=== PATIENT | female | born 1995 | race Caucasian/White ===

== ENCOUNTER 2018-04-24 15:35 | Observation (INO) ==
[2018-04-24 16:36] LABS: Amphetamine Screen,Urine Negative ng/mL (Cutoff=1000); Barbiturate Screen,Urine Negative ng/mL (Cutoff=200); Benzodiazepines Screen,Urine Negative ng/mL (Cutoff=200); Cannabinoid Screen,Urine Negative ng/mL (Cutoff = 50); Cocaine Screen,Urine Negative ng/mL (Cutoff= 300); Opiate Screen,Urine Negative ng/mL (Cutoff=300); Phencyclidine Screen,Urine Negative ng/mL (Cutoff=25)
--- NOTE | 2018-04-24 16:45 | OB/GYN Progress Note ---
Date of Encounter: 04/24/18 Time of Encounter: 16:42 - Assessment and Plan (1) 37 weeks gestation of Current Visit: Yes Status: Acute Vaginosis panel - Yeast and gardnerella positive; diflucan given prior to discharge and sent home with metrogel due to patient stating she is unable to tolerate po metronidazole. Not ruptured, SSE negative, nitrazine negative, Membranes palpable with SVE Serial cervical exams - no change Discharge home with labor precautions and bleeding precautions FOllow up in office as scheduled and PRN. (2) NST (non-stress test) reactive Current Visit: Yes Status: Acute Subjective - Subjective Principal diagnosis: Decreased movement; vaginal leaking of fluid Interval history: Ms Desai is at 37w[address] España's that presents to the office with c/ o leaking of fluid x 2 days with multiple pad changes daily. She c/o contractions every 15 minutes. She states that she has had BV this previous , but denies any other problems with this . She states decreased movement since this morning. She denies headache, vision changes, epigastric pain, vaginal bleeding, and intercourse in the past 48 hours. Antepartum ROS: new complaints, loss of fluid, no vaginal bleeding, no movement normal, no contractions Objective - Vital Signs Vital Signs: Intake and Output 04/24/18 04/24/18 04/24/18 07:59 15:59 23:59 Other: Weight 99.79 kg Patient Weight 04/24/18 23:59 Weight 99.79 kg - Exam FHR: auscultation normal, category 1 FHR comments: Baseline 130 category I tracing Auscultation: bilateral: normal Abdomen: Present: normal appearance, soft, gravid Uterus: Present: normal. Absent: firm, tenderness Cervical dilation: 2 Cervix effacement: 80 station: 0 Comments: SSE - moderate amount of green/yellow thick discharge. homogenous in appearance Vaginal bleeding occurred with opening of speculum.
[2018-04-24 17:38] LABS: Candida DNA DETECTED (Not Detect); Gardnerella DNA DETECTED (Not Detect); Trichomonas DNA Not Detected (Not Detect)
[2018-04-24] MEDS ORDERED: Fluconazole 100 MG TABLET PO ONE (17:43)
== END 2018-04-24 19:27 | disposition home or self-care (01) ==
LOC: 1NENULAB
PROVIDERS: ADMIT Advanced Practice Midwife; ATTEND Advanced Practice Midwife

== ENCOUNTER 2018-05-04 08:00 | Inpatient (IN) ==
[2018-05-04] MEDS ORDERED: *HR* Nalbuphine 10 MG/ML AMPUL IVP PRN (08:23)
[2018-05-04] MEDS ORDERED: Naloxone 0.4 MG/ML INJ IVP PRN (08:23)
[2018-05-04] MEDS ORDERED: Metoclopramide 10 MG/2 ML VIAL IVP PRN (08:23)
[2018-05-04] MEDS ORDERED: Famotidine 20 MG/2 ML VIAL IVP PRN (08:23)
[2018-05-04] MEDS ORDERED: Oxytocin 20 units/ LR 1000 mL 20 UNIT/1,000 ML BAG IVC SCH (08:30)
[2018-05-04 08:59] LABS: Basophils # 0.1 K/mcL (0.0-0.2); Basophils % 0.6 %; Eosinophils # 0.1 K/mcL (0.0-0.6); Eosinophils % 0.7 %; Hemoglobin 13.7 g/dL (11.5-15.4); Lymphocytes # 2.6 K/mcL (0.6-4.6); Mean Corpuscular HGB Conc 35.1 g/dL (31.6-35.5); Mean Corpuscular Hemoglobin 32.6 pg (28.0-33.3); Mean Corpuscular Volume 92.9 fL (83.0-100.0); Mean Platelet Volume 10.6 fL (9.4-12.4); Monocytes # 0.9 K/mcL (0.0-1.3); Monocytes % 7.4 %; Neutrophils # 8.1 K/mcL (1.6-8.9); Platelet Count 167 K/mcL (140-400); Red Cell Distribution Width 14.5 % (11.5-14.5); Segmented Neutrophils % 66.3 %
[2018-05-04 09:07] LABS: Amphetamine Screen,Urine Negative ng/mL (Cutoff=1000); Barbiturate Screen,Urine Negative ng/mL (Cutoff=200); Benzodiazepines Screen,Urine Negative ng/mL (Cutoff=200); Cannabinoid Screen,Urine Negative ng/mL (Cutoff = 50); Cocaine Screen,Urine Negative ng/mL (Cutoff= 300); Opiate Screen,Urine Negative ng/mL (Cutoff=300); Phencyclidine Screen,Urine Negative ng/mL (Cutoff=25)
--- NOTE | 2018-05-04 09:13 | Anesthesia Evaluation PreOp ---
Date of Encounter: 05/04/18 Time of Encounter: 09:01 - Past History Planned Operation: vaginal del, G1 induction Cardiac History: Denies any Significant Hx Pulmonary History: Denies Any Significant HX [employer] History: Denies Any Significant HX Other Medical History: Denies Any Significant HX Anesthesia History: No Prior Anesthetic Complications, Past Anesthesia Alcohol Use: none Drug use: none Medications and Allergies Vit Calc,Iron,Folic [ Vitamins] 1 tab PO DAILY 04/24/18 [ History] 3 Allergy/AdvReac Type Severity Reaction Status Date / Time Amoxicillin Allergy Mild Rash Verified 04/24/18 16:18 Anesthesia Results - Labs 05/04/18 08:40 Anesthesia Exam - HEENT Pupil (Motor): Pupils equal Mallampati: II Teeth: Normal Oral Opening: Greater than 3 - [employer] LOC: Oriented [employer] Motor: Normal RUE, Normal LUE, Normal RLE, Normal LLE, Normal Face [employer] Sensory: Normal: RUE, LUE, RLE, LLE, Face - Cardiac Rhythm: Regular Murmur: None - Pulmonary Breath Sounds: bilateral Clear Respiratory Effort: Symmetrical Anesthesia Assess/Plan ASA Score: 2 Modified Myles Scale for Level of Consciousness: Cooperative, oriented, and tranquil Anesthetic Plan: General, Regional Monitoring Plan: Standard Monitors Recovery Plan: PACU
[2018-05-04] MEDS ORDERED: EPHEDrine 50 MG/ML VIAL IVP PRN (09:14)
[2018-05-04] MEDS ORDERED: Epidural Premix (fent/bupiv) 110 ML EP SCH (09:15)
[2018-05-04] MEDS ORDERED: Epidural Premix (fent/bupiv) 110 ML EP ONE (09:18)
[2018-05-04] MEDS ORDERED: Lidocaine -MPF 2% 5 ML VIAL ONE (09:20)
--- NOTE | 2018-05-04 09:23 | OB/GYN History & Physical ---
Date of Encounter: 05/04/18 Time of Encounter: 09:21 Assessment and Plan (1) 39 weeks gestation of Current visit: Yes Status: Acute (2) GDM, class A1 Current visit: Yes Status: Acute (3) Positive GBS test Current visit: Yes Status: Acute Patient reports questionable allergy to Amoxicillin. She states about 2 years ago she had a rash develop. She states she had taken amoxil all her life and never had a problem. At the time she had a virus and they weren't sure if it was a viral rash or caused from the medication. Mom states she has no other drug allergies. History of Present Illness Chief complaint: induction of labor HPI: Ms. Desai is a 23 year old female G 1 at 39 2/7 weeks presents to labor and delivery for induction of labor at term with A1 GDM. She has recently become noncomplaint with the accuchecks. She has had no other complications with this . Past Med Surg Social Fam HX - Past Medical History Source: patient Medical history: no medical history Psychiatric history: no psych history - Past Surgical History Surgical History: other Additional surgical history: tympanoplasty-2009, tonsils and adenoids - Social History Smoking Status: Never smoker Smokeless Tobacco Status: No Alcohol use: none Drug use: none - Family History Mother Adopted: [place]: Lori Pierce Age: 42 Family Member Ethnicity: Non- Living Status: Still Living Hx Family Cardiac Disorders: Yes (HTN) Hx Family Respiratory Disorders: No Hx Family Cancer: No Hx Family GI Disorders: No Hx Family Endocrine Disorder: No Hx Family Neuromuscular Disorders: No Hx Family Neurologic Disorders: No Hx Family HEENT Disorders: No Hx Family Autoimmune Disorders: No Obstetrical History - Pregnancies : 1 Medications and Allergies Vit Calc,Iron,Folic [ Vitamins] 1 tab PO DAILY 04/24/18 [ History] 3 Allergy/AdvReac Type Severity Reaction Status Date / Time Amoxicillin Allergy Mild Rash Verified 04/24/18 16:18 Review of System OB All systems PM: reviewed and no additional remarkable complaints except as stated - Constitutional Constitutional ROS IM: no chills, no fatigue, no fever(s), no headache(s) - Genitourinary Genitourinary: urinary frequency, no abnormal vaginal bleeding, no urinary urgency, no vaginal discharge, no vaginal dryness - Menstruation Menstruation: amenorrhea Exam - Constitutional Constitutional: well developed, well nourished, no acute distress - HEENT HEENT: EOMI - Lungs Respiratory exam: CTAB - Cardiovascular Cardiovascular exam: RRR - Abdomen Abdomen: Present: bowel sounds normal, gravid, non tender - Vagina Vagina: Present: normal moisture - Cervix Dilation: 2 (on exam 05/02/18) Effacement: 80 Station: -3 - Anus/Rectum Anus/Rectum: Present: normal perianal skin Results Result Diagrams: 05/04/18 08:40 05/04/18 08:40 Abnormal lab results WBC 12.3 K/mcL (4.3-11.1) H 05/04/18 08:40 All other labs normal. - VTE Reasons for not Prescribing Prophylaxis: Treatment not Indicated - Low risk for VTE
[2018-05-04] MEDS ORDERED: CeFAZolin Premix DUPLEX 2,000 MG/50 ML BAG IVPB ONE (09:34)
[2018-05-04] MEDS: Ringers Solution, Lactated 1,000 ML IVC SCH ×2 (10:08→18:01)
--- NOTE | 2018-05-04 13:38 | OB Labor Progress Note ---
Date of Encounter: 05/04/18 Time of Encounter: 13:10 Labor Progress Note - Subjective Subjective: Patient is getting more uncomfortable with contractions - Cervix Cervix: 2/80/-3 - Heart Tones Heart Tones: category 1 - [place]: q 2-3 minutes. pitocin at 6 milliunits per minute - Interventions Interventions: cervical exam with difficulty. Patient did not tolerate well. - Plan Plan: Continue to increase pitocin PRN to cause cervical change
[2018-05-04] MEDS ORDERED: ceFAZolin 1,000 MG in Water for inj. (sterile) 20 ML 10 ML IVP SCH (16:00)
[2018-05-04] MEDS ORDERED: Clindamycin 900 MG/50 ML 900 MG/50 ML IV.SOLN IVPB SCH (16:00)
--- NOTE | 2018-05-04 18:31 | OB Labor Progress Note ---
Date of Encounter: 05/04/18 Time of Encounter: 18:29 Labor Progress Note - Subjective Subjective: Patient denies any complaints at this time - Cervix Cervix: 5/80/-1 vetex - Heart Tones Heart Tones: category 1, baseline 120 - [place]: q 1- 3 minutes, pitocin at 14 mUnits/minute - Interventions Interventions: AROM with clear fluid, IUPC placed without difficulty - Plan Plan: Continue pitocin induction. Patient desires epidural at this time.
--- NOTE | 2018-05-04 19:02 | Anesthesia Procedures ---
Date of Encounter: 05/04/18 Time of Encounter: 18:39 Procedures: Anesthesia - Epidural/Spinal Patient ID/Chart reviewed: Yes Patient examined: Yes OB Eval: Gestational age: term OB Eval: : 1 OB Eval: Contractions: Non-stressed pattern Consent Obtained: Yes Supplemental Oxygen: None/Room Air Site Prep: Aseptic Technique, Sterile prep and drape, 0.5% Chlorhexidine/Alcohol Patient position: upright Local Anesthetic: Lidocaine 1% Amount of Local Anesthetic used: 2 Touhy Needle Gauge: 18 Touhy Needle Depth (cm): 7 Catheter Depth at Skin (cm): 12 Test Dose (1.5% Lido + Epi): Volume given (mls): 3 Test Dose Result: Negative Loading Dose: Other: 10ml from solution Loading Dose Administered: Thru Catheter Infusion Med: 0.125% Bupivacaine w/ 2 mcg/ml Fentanyl Infusion Rate (mls/hr): [address]: Tegaderm, Tape Interspace Used: L3-L4 Loss of Resistance (VAMSI): Yes (saline) Blood: No CSF: No Paresthesia: No Procedure: vss though out procedure, fhr stable per RN's
[2018-05-04] MEDS ORDERED: *HR* Ropivacaine/PF 0.5% 20 ML VIAL ONE (22:49)
[2018-05-04] MEDS ORDERED: *HR* Phenylephrine 10 MG/ML VIAL ONE (22:56)
[2018-05-04] MEDS ORDERED: Lidocaine/EPI 1:200k 2% PF 20 ML VIAL ONE (22:57)
[2018-05-05] MEDS ORDERED: Lidocaine/EPI 1:200k 2% PF 20 ML VIAL ONE (00:45)
--- NOTE | 2018-05-05 05:34 | OB/GYN Procedure Note ---
Delivery - Delivery Date: 05/05/18 Provider: Ellen España Intrapartum events: none Delivery induction: AROM, oxytocin Delivery monitor: external FHT, external uterine, internal uterine Anesthesia: epidural Quantitated Blood Loss: 300 - Infant (s) A Infant Delivery Date: 05/05/18 Delivery Time: 05:04 Presentation: vertex Position: OA Route of delivery: Gender: Male Viability: Viable Pounds: 8 Ounces: 13 Weight Gram: 4.005 kg at 1 minute: 8 at 5 mins: 9 Shoulder Dystocia: not encountered Specimens collected: cord blood Placenta: spontaneous Cord: 3 umbilical vessels - Repair Episiotomy: none Laceration Description: Perineal - 2nd Degree - Complications Delivery complications: none Delivery comments: Called to room with patient complete and +2 station. Under maternal effort she delivered a viable male weighing 8 lbs. 13 oz. and Apgars 8 and 9 at one and 5 minutes respectively over second-degree perineal laceration. Following delivery of the head there is no nuchal cord or shoulder dystocia encountered. The body delivered with maternal effort was placed on mom's abdomen. A second degree perineal laceration was repaired using 3-0 Vicryl in standard fashion. Cord was then clamped and cut after pulsation ceased. Placenta delivered spontaneously, complete, and intact with three-vessel cord. Mother and are recovering in the LDR in stable condition. - Disposition Mom disposition: stable in LDR [place] disposition: stable in LDR
[2018-05-05] MEDS ORDERED: Oxytocin 20 units/ LR 1000 mL 20 UNIT/1,000 ML BAG IVC SCH (08:21)
[2018-05-05] MEDS ORDERED: Oxytocin 20 units/ LR 1000 mL 20 UNIT/1,000 ML BAG IVC ONE (08:21)
[2018-05-05] MEDS ORDERED: Acetaminophen 325 MG TABLET PO PRN (08:21)
[2018-05-05] MEDS: Ibuprofen 600 MG TABLET PO PRN ×2 (08:54→16:09)
[2018-05-05] MEDS: Prenatal Vit/FA 1 EACH TABLET PO SCH (08:54)
[2018-05-06 07:49] VITALS: BP 123/85
--- NOTE | 2018-05-06 09:19 | Discharge Summary ---
Date of Encounter: 05/06/18 Time of Encounter: 09:16 - Discharge Diagnosis (1) Vaginal delivery Priority: Primary Status: Acute Comments: Feeling well Pain well controlled with by mouth pain meds Vital signs stable Tolerating regular diet Ambulating independently Voiding independently Passing flatus, but no BM yet Lochia light Discharge home today - Discharge Medications Prescriptions: Ibuprofen [Motrin] 600 mg PO Q6HR PRN #30 tablet PRN Reason: Cramping Docusate [Colace] 100 mg PO BID #30 capsule Home Medications: Vit Calc,Iron,Folic [ Vitamins] 1 tab PO DAILY 04/24/18 [ History] Acetaminophen [Tylenol] 650 mg PO Q6HR PRN tablet 05/06/18 [Rx] Docusate [Colace] 100 mg PO BID #30 capsule 05/06/18 [Rx] Ibuprofen [Motrin] 600 mg PO Q6HR PRN #30 tablet 05/06/18 [Rx] Allergies/Adverse Reactions: 3 Allergy/AdvReac Type Severity Reaction Status Date / Time Amoxicillin Allergy Mild Rash Verified 04/24/18 16:18 Data Procedures and tests throughout hospitalization: Laboratory Tests 05/04/18 05/04/18 05/04/18 08:40 08:40 08:40 WBC 12.3 H RBC 4.20 Hgb 13.7 Hct 39.0 MCV 92.9 MCH 32.6 MCHC 35.1 RDW 14.5 Plt Count 167 MPV 10.6 Immature Gran % 4.0 Seg Neutrophils % 66.3 Lymphocytes % 21.0 Monocytes % 7.4 Eosinophils % 0.7 Basophils % 0.6 Neutrophils # 8.1 Lymphocytes # 2.6 Monocytes # 0.9 Eosinophils # 0.1 Basophils # 0.1 Glucose 89 Urine Opiates Screen Negative Ur Barbiturates Screen Negative Ur Phencyclidine Scrn Negative Ur Amphetamines Screen Negative U Benzodiazepines Scrn Negative Urine Cocaine Screen Negative U Marijuana (THC) Screen Negative Ur Drug Screen Interp See Below Date of admission: 05/04/18 08:17 Primary care physician: PCP NONE Consults: 05/05/18 08:21 Consult to [employer] [CONS] Routine Comment: Vaginal delivery, consult needed Discharging clinician: Lesly Calix Anticipated date of discharge: 05/06/18 - Patient Status Disposition: Home, Self-Care Condition: Good Functional capacity at discharge: independent ambulation Overall status at discharge: patient is progressing back to baseline - Discharge Instructions Follow Up With: NONE,PCP [Primary Care Provider] - Gee Shultz [Family Provider] - Ellen España DO [Partnered Physician] - - Diet and Activity Activity: increase activity as tolerated Diet: regular diet Hospital Course Reason for admission: induction of labor, IUP at term Delivery: Episiotomy: none Laceration: 2nd degree Other procedures: none complications: none Discharge diagnosis: IUP at term delivered baby: male Time Attestation: Total time spent providing and/or coordinating discharge services: Time Spent: Less than 30 minutes Exam - Constitutional Vitals: Temp Pulse Resp BP Pulse Ox 98.1 F 103 14 123/85 97 05/06/18 07:48 05/06/18 07:48 05/06/18 07:48 05/06/18 07:48 05/06/18 07:48 General appearance IM: A&O X 3 - Respiratory Respiratory exam: Present: CTAB - Cardiovascular Cardiovascular exam IM: Present: RRR, +S1, +S2 - GI/Abdominal GI/Abdominal exam IM: normal bowel sounds, no peritoneal signs - Rectal Rectal exam: deferred - Uterine Tone: Firm Uterus Position: 1 Finger Below Umbilicus, Midline - Extremities Exam Extremities exam IM: Present: normal capillary refill, normal inspection, radial pulses palpable and symmetrical - Neurological Exam Neurological exam: alert, CN II-XII intact, normal gait, oriented X3, reflexes normal, no focal deficits, strengths equal and symetr throughout - Psychiatric Additional comments: Patient denies history of anxiety or depression. Signs and symptoms of depression discussed with patient and mother. They both verbalize understanding of when to seek help.
[2018-05-06] MEDS: Prenatal Vit/FA 1 EACH TABLET PO SCH (09:37)
[2018-05-06] MEDS: Ibuprofen 600 MG TABLET PO PRN (09:37)
== END 2018-05-06 11:50 | disposition home or self-care (01) | DRG 560 ==
LOC: 1NENULAB 08:17 → 1NENUOBS 05-05 08:15
PROVIDERS: ADMIT Obstetrics & Gynecology; ATTEND Obstetrics & Gynecology